=== PATIENT | female | born 1985 ===

== ENCOUNTER 2017-11-04 20:34 | Inpatient (IN) | payer SELFPAY ==
[~2017-11-04] VITALS: Ht 175.3 cm; Wt 90.9 kg
--- NOTE | ~2017-11-04 | OP ---
PATIENT NAME: KAYE CHESTER MEDICAL RECORD: [id number] :87 LOCATION:[facility].1278 ADMISSION DATE:11/04/17 SURGEON: DAMIAN MICHAUD MD DATE OF OPERATION: 11/04/2017 PREOPERATIVE DIAGNOSIS: Inevitable . POSTOPERATIVE DIAGNOSIS: Inevitable . PROCEDURE: Evacuation with sharp curettage. SURGEON: Damian Michadu MD SAMPLE TAKER OPERATOR: Jose Pham. ANESTHESIA: General. FINDINGS: The large clots are in the vaginal vault. Cervix is dilated and easily accommodates an 8 curved suction curette. Moderate amounts of products of conception with clot is removed. Vaginal vault and vulva is unremarkable. SPECIMENS REMOVED: Products of conception. SPECIMEN DISPOSITION: Pathology. FLUIDS: 450 cc of lactated Ringer's. URINE OUTPUT: Quantity sufficient cath prior to this procedure. INTRAOPERATIVE ESTIMATED BLOOD LOSS: 100 cc. COMPLICATIONS: None. DRAINS: None. INDICATIONS: The patient is a 32-year-old G5, para 4 who was transferred from [place], [place] with reports of heavy vaginal bleeding. The patient was reported to have a blood pressure 90/30 during transport. The patient states she is dizzy with sitting up or standing. The patient is found to have heavy vaginal bleeding upon arrival and is consented for evacuation of uterine contents. Previous ultrasound with an intrauterine gestation. The patient states she is 5 weeks. DESCRIPTION OF PROCEDURE: After informed consent was assured, the patient was taken to the operating room where anesthetic is obtained. The patient was then placed in Neil stirrups and prepped and draped. Bimanual exam reveals a large clot in the vault which was removed. Uterine size is consistent with 8-9 weeks' gestation. The operative speculum was introduced in the vagina. The cervix grasped with a single tooth tenaculum and easily accommodates an 8 curved suction curette, which is passed gently to the fundus and suction applied at 70 mmHg. Several passes of this device removed remaining clot and debris. A sharp curettage was now performed with a #2 curette. A single pass with the suction device removed all remaining clot and debris. Single tooth tenaculum was removed from the cervix and a ring forceps placed over the puncture sites for hemostasis. Sponge, lap, and needle counts correct. The patient is sent to the OPERATIVE REPORT [id number] KAYE CHESTER recovery area and then will be sent to labor and delivery for postoperative care. The patient's hematocrit was noted to drop from 36 to 30 in a short amount of time. Another hematocrit will be drawn later on this evening or heel cementer and she has been consented for transfusion if necessary. TRANSINT:[id number] Voice Confirmation ID: [id number] DOCUMENT ID: [id number] DAMIAN MICHAUD MD at 1126 CC: [id number] DICTATION DATE: 11/04/172147 CREATIVE SERVICES DIRECTOR: 11/04/172239 DIS IN 11/05/17 [id number] [place] [address]
--- NOTE | ~2017-11-04 | DS ---
PATIENT:KAYE CHESTER :87 MEDICAL RECORD: [id number] DISCHARGE SUMMARY ADMISSION DATE: 11/04/17 DISCHARGE DATE: 11/05/17 ADMISSION DIAGNOSIS: Inevitable . DISCHARGE DIAGNOSIS: Inevitable . PROCEDURE: Evacuation and curettage of uterine contents. ATTENDING: aSmra Michaud MD HISTORY OF PRESENT ILLNESS: See the H&P in the chart. SUMMARY OF HOSPITALIZATION: The patient was admitted to the hospital and underwent urgent D&E. The patient's hematocrit has stabilized at 30 and she did not receive any blood products. The patient is doing well at the time of discharge, tolerating a regular diet and voiding. The patient has no dizziness or headaches. The patient discharged home with instructions to take mkwd-nom-vbrlzry vitamins and use Tylenol or Motrin for cramping or pain. I recommend followup with her primary associate merchandise planner as needed. TRANSINT:[id number] Voice Confirmation ID: [id number] DOCUMENT ID: [id number] SAMRA MICHAUD MD at 0920 CC: [id number] DICTATION DATE: 11/05/17728 LACE CUTTER: 11/05/17 0959 DIS IN 11/05/17 [facility] [address] [place] [address]
[2017-11-04 20:01] VITALS: BP 118/74
[2017-11-04 20:56] LABS: HEMATOCRIT 30.8 % (36.0-48.0); HEMOGLOBIN 10.1 g/dL (12-16); MCH 29.6 pg (26.0-34.0); MCHC 32.8 g/dL (31.0-37.0); MCV 90.3 fL (80.0-100.0); MEAN PLATELET VOLUME 11.5 fL (7.4-10.4); RBC 3.41 10x6/uL (4.00-5.40); WBC 10.4 10x3/uL (4.8-10.8)
[2017-11-04 21:20] VITALS: BP 122/70
[2017-11-04 22:10] VITALS: BP 110/68
[2017-11-04 22:20] VITALS: BP 110/68
[2017-11-04 23:02] VITALS: BP 110/68; Ht 175.3 cm; Wt 90.9 kg
[2017-11-05 00:05] VITALS: BP 115/70
[2017-11-05 01:30] VITALS: BP 118/70
[2017-11-05 03:03] VITALS: BP 111/59
[2017-11-05 07:25] VITALS: BP 110/64
== END 2017-11-05 08:15 | disposition home or self-care (01) | DRG 770 ==
LOC: OBSVTIME 20:34 → D.LD 20:34 → OBSVTIME 21:11 → D.LD 11-05 08:15
PROVIDERS: Obstetrics & Gynecology
PROC: 10D17ZZ Extraction of Products of Conception, Retained, Via Natural or Artificial Opening (ICD-10-PCS; principal; 2017-11-04 21:00)
DX: O02.1 Missed abortion (principal); O99.011 Anemia complicating pregnancy, first trimester; Z3A.01 Less than 8 weeks gestation of pregnancy; E86.1 Hypovolemia; O26.891 Other specified pregnancy related conditions, first trimester